=== PATIENT | male | born 1945 | race Caucasian/White ===

== ENCOUNTER → 2016-09-06 | Outpatient (CLI) | payer OTHER ==
[2016-09-06 09:53] LABS: HEMATOCRIT 37.9 % (42-52); MEAN CELL VOLUME 90.9 fL (80-100); MEAN CORPUSCULAR HEMOGLOBIN 30.9 pg (25-34); MEAN PLATELET VOLUME 10.4 fL (7.4-10.4); PLATELET COUNT 215 K/uL (130-400); RED BLOOD COUNT 4.17 M/uL (4.7-6.1)
[2016-09-06 10:31] LABS: ALB/GLOB RATIO 1.1 (0.9-2); ALT/SGPT 24 U/L (12-78); AST/SGOT 17 U/L (15-37); BLOOD UREA NITROGEN 20 mg/dl (7-18); BUN/CREATININE RATIO 20.6 (10-20); CALCIUM 8.8 mg/dl (8.5-10.1); CARBON DIOXIDE 31 mmol/L (21-32); CHLORIDE 104 mmol/L (98-107); CHOLESTEROL 157 mg/dl (0-200); CREATININE 0.98 mg/dl (0.60-1.40); GLUCOSE 92 mg/dl (70-99); SODIUM 140 mmol/L (136-145); TRIGLYCERIDES 86 mg/dl (0-150); VERY LOW DENSITY LIPOPROT CALC 17 mg/dl
[2016-09-06 10:40] LABS: ALKALINE PHOSPHATASE 72 U/L (45-117); CHOLESTEROL/HDL RATIO 2.5; FERRITIN 63.8 ng/ml (8.0-388.0); HDL CHOLESTEROL 64 mg/dl; LDL CHOLESTEROL CALCULATED 76 mg/dl; PROSTATE SPECIFIC ANTIGEN 0.524 ng/ml (0.000-4.000); TOTAL IRON BINDING CAPACITY 350 mcg/dl (250-450)
[2016-09-06 10:55] LABS: BASO ABS # 0.22 K/uL (0-0.2); BASOPHIL % 4.4 % (0-2); COMPLETE YES; EOSINOPHIL % 2.6 %; LARGE GRANULAR LYMPH ABSOLUTE 0.88 K/uL; LARGE GRANULAR LYMPHOCYTE % 17.5 %; LYMPH ABS # 1.85 K/uL (1.2-3.4); LYMPHOCYTE % 36.9 %; NEUTROPHILS % 30.7 %
--- NOTE | 2016-09-13 07:08 | CODING QUERY MEDICAL NECESSITY ---
CQSUPPORTING DIAGNOSIS NEEDED A supporting diagnosis is required for the test/procedure performed on this patient in order for us to be reimbursed by the patient's insurance. Please provide a supporting diagnosis for the following test/procedure listed below next to the test name along with your signature. *If there is no additional diagnosis for this patient that would support the following test/procedure please document that below next to the test/procedure. Test(s)/Procedure(s) that require a supporting diagnosis: DOS 09/06/16 PROSTATE SPECIFIC TEST (PSA) Provider Signature: Date: Thank you Lizbeth Almaraz Health Information Management Once completed, please kindly fax back to [phone] For questions please call [phone]
== END | disposition home or self-care (01) ==
LOC: C.LAB1850 08:51
PROVIDERS: ATTEND Internal Medicine
DX: D64.9 Anemia, unspecified (principal); E03.9 Hypothyroidism, unspecified; G14 Postpolio syndrome; Z12.5 Encounter for screening for malignant neoplasm of prostate

== ENCOUNTER → 2016-09-14 | Outpatient (CLI) | payer OTHER ==
--- NOTE | 2016-09-21 08:54 | CODING QUERY MEDICAL NECESSITY ---
SUPPORTING DIAGNOSIS NEEDED A supporting diagnosis is required for the test/procedure performed on this patient in order for us to be reimbursed by the patient's insurance. Please provide a supporting diagnosis for the following test/procedure listed below next to the test name along with your signature. *If there is no additional diagnosis for this patient that would support the following test/procedure please document that below next to the test/procedure. Test(s)/Procedure(s) that require a supporting diagnosis: DOS 09/14 * Vitamin D DIAGNOSIS: Provider Signature: Date: Thank you Cristy Villanueva Health Information Management Once completed, please kindly fax back to [phone] For questions please call [phone]
--- NOTE | 2016-10-04 06:53 | CODING QUERY MEDICAL NECESSITY ---
SUPPORTING DIAGNOSIS NEEDED Dr. Rendon, A supporting diagnosis is required for the test/procedure performed on this patient in order for us to be reimbursed by the patient's insurance. Please provide a supporting diagnosis for the following test/procedure listed below next to the test name along with your signature. *If there is no additional diagnosis for this patient that would support the following test/procedure please document that below next to the test/procedure. Test(s)/Procedure(s) that require a supporting diagnosis: * ([id number]) FLOW CYTOMETRY DIAGNOSIS: * ([id number]) FLOW CYTOMETRY DIAGNOSIS: DATE OF SERVICE: 09/14/16 Provider Signature: Date: Thank you Sarabjit Mcintyre [facility] Information Management Once completed, please kindly fax back to [phone] For questions please call [phone]
== END | disposition home or self-care (01) ==
LOC: C.LAB1850 11:53
PROVIDERS: ATTEND Internal Medicine
DX: D50.9 Iron deficiency anemia, unspecified (principal); Z86.19 Personal history of other infectious and parasitic diseases; R53.83 Other fatigue; Z13.21 Encounter for screening for nutritional disorder

== ENCOUNTER → 2016-10-21 | Outpatient (CLI) | payer OTHER ==
[2016-10-21 15:14] LABS: THYROID STIMULATING HORMONE 0.012 uIu/ml (0.300-4.500)
== END | disposition home or self-care (01) ==
LOC: C.LAB1850 12:08
PROVIDERS: ATTEND Internal Medicine
DX: E03.9 Hypothyroidism, unspecified (principal)

== ENCOUNTER → 2016-11-02 | Outpatient (CLI) | payer OTHER ==
[2016-11-05 23:27] LABS: IGA SERUM 134 mg/dL (81-463); TIS TRANS IGA 1 U/mL (<4)
== END | disposition home or self-care (01) ==
LOC: C.LAB1850 15:39
PROVIDERS: ATTEND Physician Assistant
DX: R63.4 Abnormal weight loss (principal)

== ENCOUNTER → 2016-11-11 | Outpatient (CLI) | payer OTHER | END | disposition home or self-care (01) | LOC: C.LAB1850 16:13 | PROVIDERS: ATTEND Physician Assistant | DX: R53.83 Other fatigue (principal); E03.9 Hypothyroidism, unspecified ==

== ENCOUNTER → 2017-01-06 | Outpatient (CLI) | payer OTHER ==
[2017-01-06 18:28] LABS: THYROID STIMULATING HORMONE 0.175 uIu/ml (0.300-4.500)
== END | disposition home or self-care (01) ==
LOC: C.LAB1850 16:20
PROVIDERS: ATTEND Internal Medicine
DX: E03.9 Hypothyroidism, unspecified (principal)

== ENCOUNTER → 2017-01-18 | Outpatient (CLI) | payer OTHER | END | disposition home or self-care (01) | LOC: C.LAB1850 12:29 | PROVIDERS: ATTEND Internal Medicine | DX: Z86.19 Personal history of other infectious and parasitic diseases (principal) ==

== ENCOUNTER → 2017-03-11 | Outpatient (CLI) | payer OTHER ==
[2017-03-11 17:38] LABS: HEMATOCRIT 34.6 % (42-52); MEAN CELL VOLUME 90.3 fL (80-100); MEAN CORPUSCULAR HEMOGLOBIN 30.3 pg (25-34); MEAN CORPUSCULAR HGB CONC 33.5 g/dl (32-36); MEAN PLATELET VOLUME 9.8 fL (7.4-10.4); PLATELET COUNT 275 K/uL (130-400); RED BLOOD COUNT 3.83 M/uL (4.7-6.1); WHITE BLOOD COUNT 7.23 K/uL (4.8-10.8)
[2017-03-11 18:04] LABS: BLOOD UREA NITROGEN 21 mg/dl (7-18); BUN/CREATININE RATIO 21.9 (10-20); CALCIUM 8.8 mg/dl (8.5-10.1); CARBON DIOXIDE 28 mmol/L (21-32); CHLORIDE 106 mmol/L (98-107); CREATININE 0.98 mg/dl (0.60-1.40); GLUCOSE 88 mg/dl (70-99); POTASSIUM 4.2 mmol/L (3.5-5.1); SODIUM 139 mmol/L (136-145)
[2017-03-11 18:15] LABS: FERRITIN 34.2 ng/ml (8.0-388.0); TOTAL IRON BINDING CAPACITY 351 mcg/dl (250-450)
== END | disposition home or self-care (01) ==
LOC: C.LAB1850 15:51
PROVIDERS: ATTEND Internal Medicine
DX: E03.9 Hypothyroidism, unspecified (principal); D50.9 Iron deficiency anemia, unspecified

== ENCOUNTER → 2017-04-07 | Outpatient (CLI) | payer OTHER ==
--- NOTE | 2017-04-07 11:27 | DIAGNOSTIC IMAGING REPORT ---
L-SPINE MIN 4 VIEWS ROUTINE CLINICAL HISTORY: G14 Post-polio [id number] Lumbar [id number] Numbness COMPARISON STUDY: No previous studies for comparison. FINDINGS: There is L3 spondylolysis. There is a grade 1 spondylolisthesis of L3 on L4. There is a grade 1 spondylolisthesis of L4 on L5. There is a superior endplate L5 compression deformity, likely chronic. There is partial sacralization of the L5 vertebra. There are advanced arthritic changes present within the right hip with total cartilaginous loss and prominent subchondral cysts. There is mild fecal retention. IMPRESSION: 1. 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 L3 spondylolysis 4. Grade 1 spondylolisthesis of L3 on L4 and L4 on L5 5. 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 Superior endplate L5 compression deformity likely old Electronically signed by: Darin Acevedo M.D. 04/07/2017 11:25 AM Dictated Date/Time: 04/07/2017 11:22 AM
[2017-04-07 12:47] LABS: RHEUMATOID FACTOR < 10.0 U/mL (0-15)
== END | disposition home or self-care (01) ==
LOC: C.RAD1850 10:33
PROVIDERS: ATTEND Psychiatry & Neurology Neurology
DX: M54.16 Radiculopathy, lumbar region (principal); R20.0 Anesthesia of skin; G14 Postpolio syndrome

== ENCOUNTER → 2017-04-13 | Outpatient (CLI) | payer OTHER ==
--- NOTE | 2017-04-13 11:03 | DIAGNOSTIC IMAGING REPORT ---
MRI LUMBAR SPINE W/O CONTRAST CLINICAL HISTORY: G14 Post-polio [id number] Lumbar [id number] Numbness TECHNIQUE: Sagittal and axial T1, T2 and STIR images were obtained. COMPARISON STUDY: Conventional radiographic evaluation the lumbar spine dated 04/07/2017 OBSERVATIONS: There is a transitional vertebra with sacralization of the L5 vertebral body. The numbering scheme as annotated on the PACS images. There are no areas of marrow replacement to indicate neoplasm or occult fracture. L1-2: There is a circumferential disc bulge. There is mild to moderate spinal stenosis. There is mild bilateral foraminal narrowing. L2-3: There is a circumferential disc bulge. There is mild to moderate spinal stenosis. There is mild bilateral foraminal narrowing L3-4: There is a grade 1 spondylolisthesis of L3 on L4. There is moderate spinal stenosis. There is severe left-sided foraminal narrowing and mild right-sided foraminal narrowing. L4-5: There is a grade 1 spondylolisthesis of L4 and L5. There is L4-5 fusion. There is no significant spinal stenosis. There is mild bilateral foraminal narrowing. L5-S1: There is no evidence of disc bulge or focal herniation. There is no evidence of significant spinal or foraminal stenosis. The conus medullaris and cauda equina appear normal. IMPRESSION: 1. Transitional vertebra with numbering as annotated on the PACS system 2. Multilevel spondylitic changes. Mild to moderate spinal stenosis at the L1-2 and L2-3 levels. Moderate spinal stenosis at the L3-4 level. 3. Multilevel foraminal narrowing most severe on the left at the L3-4 level. 4. Grade 1 spondylolisthesis of L3 on L4, and L4 on L5. 5. No suspicious areas of marrow replacement Electronically signed by: Darin Acevedo M.D. 04/13/2017 11:02 AM Dictated Date/Time: 04/13/2017 10:56 AM
== END | disposition home or self-care (01) ==
LOC: C.MRI 09:32
PROVIDERS: ATTEND Psychiatry & Neurology Neurology
DX: G14 Postpolio syndrome (principal); M54.16 Radiculopathy, lumbar region; R20.0 Anesthesia of skin; M48.061 Spinal stenosis, lumbar region without neurogenic claudication; M43.16 Spondylolisthesis, lumbar region

== ENCOUNTER → 2017-09-05 | Outpatient (CLI) | payer OTHER ==
[2017-09-05 16:54] LABS: BASO % 0.3 %; BASO ABS # 0.02 K/uL (0-0.2); EOS % 1.1 %; EOS ABS # 0.07 K/uL (0-0.5); HEMOGLOBIN 12.1 g/dL (14.0-18.0); IG# 0.02 K/uL (0.00-0.02); LYMPH ABS # 2.16 K/uL (1.2-3.4); MEAN CELL VOLUME 89.3 fL (80-100); MEAN CORPUSCULAR HEMOGLOBIN 30.9 pg (25-34); MEAN CORPUSCULAR HGB CONC 34.6 g/dl (32-36); MEAN PLATELET VOLUME 9.8 fL (7.4-10.4); MONO % 7.6 %; MONO ABS # 0.47 K/uL (0.11-0.59); NEUT % 55.7 %; NEUT ABS # 3.44 K/uL (1.4-6.5); PLATELET COUNT 254 K/uL (130-400); RED CELL DISTRIBUTION WIDTH CV 13.6 % (11.5-14.5); RED CELL DISTRIBUTION WIDTH SD 44.6 fL (36.4-46.3); WHITE BLOOD COUNT 6.18 K/uL (4.8-10.8)
== END | disposition home or self-care (01) ==
LOC: C.LAB1850 15:19
PROVIDERS: ATTEND Internal Medicine
DX: D50.9 Iron deficiency anemia, unspecified (principal); E03.9 Hypothyroidism, unspecified